=== PATIENT | female | born 1990 | race African-American/Black ===

== ENCOUNTER 2016-08-05 10:09 | Emergency (ER) | payer SELFPAY ==
[~2016-08-05] VITALS: Ht 149.9 cm; Wt 61.2 kg
[~2016-08-05 10:09] MED LIST: Morphine Sulfate 4mg/ml Inj ONE; NKM; NORCO 5-325 TA1 EACH ORAL
[2016-08-05] MEDS ORDERED: fentaNYL 100 mcg/2 mL IV ONE ×2 (10:12→10:15)
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
[2016-08-05] MEDS ORDERED: Morphine Sulfate 4mg/ml Inj IVP ONE ×2 (10:15→11:15)
[2016-08-05 10:27] VITALS: BP 133/92
[2016-08-05] MEDS: Morphine Sulfate 4mg/ml Inj IVP ONE ×2 (10:37→10:41)
[2016-08-05] MEDS ORDERED: Bacitracin Oint UD TOPIC ONE (11:15)
[2016-08-05 12:09] VITALS: BP 123/78
[2016-08-05] MEDS ORDERED: IBUPROFEN600 MG ORAL (12:18)
[2016-08-05] MEDS ORDERED: NORCO 5-325 TA1 EACH ORAL (12:18)
[2016-08-05] MEDS ORDERED: BACITRACIN15 GM TOPIC (12:21)
[2016-08-05 12:55] VITALS: BP 123/78
== END 2016-08-05 12:58 | disposition home or self-care (01) ==
LOC: EDBD 10:09 → EMR 10:49
DX: T20.26XA Burn of second degree of forehead and cheek, initial encounter (principal); T26.02XA Burn of left eyelid and periocular area, initial encounter; T26.01XA Burn of right eyelid and periocular area, initial encounter; X16.XXXA Contact with hot heating appliances, radiators and pipes, initial encounter; Y92.89 Other specified places as the place of occurrence of the external cause
CPT/HCPCS: 96374; 96375; 99284; J2270; J2405; J3010

== ENCOUNTER 2016-10-01 12:41 | Emergency (ER) | payer SELFPAY ==
[~2016-10-01] VITALS: Ht 149.9 cm; Wt 62.6 kg
[~2016-10-01 12:41] MED LIST changes: +BACITRACIN15 GM TOPIC; +IBUPROFEN600 MG ORAL; -Morphine Sulfate 4mg/ml Inj ONE
[2016-10-01 13:00] VITALS: BP 129/86
[2016-10-01] MEDS ORDERED: PREDNISONE20 MG ORAL (13:10)
[2016-10-01] MEDS ORDERED: AMOXICILLIN500 MG ORAL (13:10)
[2016-10-01] MEDS ORDERED: IBUPROFEN600 MG ORAL (13:10)
[2016-10-01] MEDS ORDERED: PredniSONE 20mg tab ORAL ONE (13:15)
[2016-10-01 13:25] VITALS: BP 129/86
--- NOTE | 2016-10-01 13:50 | Emergency Room Report ---
History of Present Illness General Chief Complaint: Sore Throat Source: Patient Present Illness [facility] The patient is a 26-year-old female presenting for sore throat, cough, and fever which began yesterday. She denies any recent travel or sick contacts. Pain described as a 9/10 dull ache worse with swallowing. Localized to the back of the throat. She denies any other symptoms including nausea, vomiting, rash, shortness of breath, abdominal pain Allergies: Coded Allergies: No Known Allergies (Unverified , 11/17/13) Patient History Past Medical History: see triage record Pertinent Family History: none Last Menstrual Period: 09/01/16 Now: No Reviewed Nursing Documentation: PMH: Agreed, PSxH: Agreed Nursing Documentation-PMH Past Medical History: No Stated History Review of Systems All Other Systems: negative except mentioned in HPI Physical Exam Vital Signs Date Time Temp Pulse Resp B/P Pulse Ox O2 Delivery O2 Flow Rate FiO2 10/01/16 12:45 99.3 112 16 129/86 98 Room Air Sp02 EP Interpretation: reviewed, normal General Appearance: no apparent distress, alert, GCS 15, non-toxic Head: normocephalic, atraumatic Eyes: bilateral eye PERRL, bilateral eye normal inspection ENT: hearing grossly normal, no angioedema, normal voice, tonsillar swelling, pharyngeal erythema, tonsillar exudate Neck: full range of motion, supple/symm/no masses Respiratory: chest non-tender, lungs clear, normal breath sounds, no wheezing, speaking full sentences Cardiovascular #1: regular rate, rhythm, no edema Musculoskeletal: back normal, gait/station normal, normal range of motion, non- tender Neurologic: alert, oriented x3, responsive, motor strength/tone normal, sensory intact, speech normal Psychiatric: judgement/insight normal, memory normal, mood/affect normal, no suicidal/homicidal ideation Skin: normal color, no rash, warm/dry, well hydrated Medical Decision Making PA Attestation Dr. Lazo is my supervising physician. Patient management was discussed with my supervising physician Diagnostic Impression: Primary Impression: Pharyngitis, acute Qualified Codes: J02.9 - Acute pharyngitis, unspecified ER Course The patient is a 26-year-old female presenting for sore throat, cough, and fever Differential diagnosis include but not limited to pharyngitis, sinusitis, AOM, bronchitis, PNA Physical exam: Vitals within normal limits. Afebrile. No apparent distress HEENT exam: There is bilateral tonsillar edema, erythema, and exudate. Uvula midline. Moist mucous membranes. There is bilateral cervical lymphadenopathy. Lungs are clear to auscultation bilaterally Skin is warm and dry. No rash The patient is given a dose of prednisone and Motrin in the ER for pain and swelling The patient will be discharged home with a prescription for amoxicillin, steroids, and pain medication and is given ER precautions. Patient will followup with primary care Last Vital Signs Date Time Temp Pulse Resp B/P Pulse Ox O2 Delivery O2 Flow Rate FiO2 10/01/16 13:27 99.3 10/01/16 13:25 108 16 129/86 98 Room Air Status: improved Disposition: HOME, SELF-CARE Condition: Improved Scripts Prednisone* (PREDNISONE*) 20 Mg Tablet 40 MG ORAL DAILY, #10 TAB Prov: ALEJO ESTRADA P.A. 10/01/16 Amoxicillin* (AMOXIL*) 500 Mg Capsule 500 MG ORAL Q12HR, #20 CAP Prov: ALEJO ESTRADA P.A. 10/01/16 Ibuprofen* (MOTRIN*) 600 Mg Tablet 600 MG ORAL Q8H Y for For Pain, #30 TAB 0 Refills Prov: ALEJO ESTRADA P.A. 10/01/16 Referrals: NOT CHOSEN [facility]/,REFERRING (PCP) Departure Forms: Return to Work Return to Work Date: Oct 03, 2016 Patient Instructions: Pharyngitis Additional Instructions: I discussed my findings with the patient. All questions and concerns have been answered. Treatment and medication compliance have been addressed. I advised the patient that they need to follow up with PMD in 3-5 days. Return to ED if pain remains or worsens, cough worsens or remains, you notice blood in your sputum, you notice wheezing, you experience a fever, or if needed for any reason. Patient verbalized understanding of discharge instructions. ALEJO ESTRADA Oct 01, 2016 13:50
== END 2016-10-01 13:29 | disposition home or self-care (01) ==
LOC: EMR 13:15
DX: J02.9 Acute pharyngitis, unspecified (principal)
CPT/HCPCS: 99284

== ENCOUNTER 2017-09-17 12:50 | Emergency (ER) | payer SELFPAY ==
[~2017-09-17] VITALS: Ht 149.9 cm; Wt 63.5 kg
[~2017-09-17 12:50] MED LIST changes: +AMOXICILLIN500 MG ORAL; +PREDNISONE20 MG ORAL
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
[2017-09-17] MEDS ORDERED: Norco 5mg/325mg tab ORAL ONE (13:30)
[2017-09-17] MEDS ORDERED: IBUPROFEN600 MG ORAL (13:50)
[2017-09-17 14:03] VITALS: BP 125/76
[2017-09-17 14:06] VITALS: BP 125/76
--- NOTE | 2017-09-17 14:19 | Diagnostic Imaging Report ---
Indication: Reason For Exam: PAIN Technique: 3 views of the left ankle Comparison: none Findings: No acute fractures. No dislocations. The joint spaces are preserved Impression: Negative
== END 2017-09-17 14:06 | disposition home or self-care (01) ==
LOC: EMR 13:23
DX: S93.402A Sprain of unspecified ligament of left ankle, initial encounter (principal); X50.1XXA Overexertion from prolonged static or awkward postures, initial encounter; Y92.9 Unspecified place or not applicable
CPT/HCPCS: 99283